=== PATIENT | female | born 1935 | race Caucasian/White ===

== ENCOUNTER → 2016-08-03 | Outpatient (CLI) | payer OTHER, MEDICARE ==
[~2016-08-03] MED LIST: ADULT LOW DOSE81 MG PO; AMBIEN 5 MG TABL5 M1 PO; ASPIRIN325; ATIVAN0.5 MG PO; BENTYL 10 MG CA10 M1 PO; BENTYL10 MG PO; BISACODYL SUPP10 MG RECTAL; CARAFATE 11 GM/10 M1 PO; CARDIZEM CD120 MG PO; CITRATE OF MAG296 ML PO; COLACE100 MG PO; COUMADIN 5 MG TA5 M1 PO; DOXYCYCLINE 10100 M2 PO; ENALAPRIL MALEAT5 M2 PO; EVISTA PO; GAS-X125 MG PO; GLUCOTROL10 MG PO; HYDROCODON-ACE1 EAC2 PO; LANTUSSOLASTAR SQ; LASIX 40 MG TAB40 M1 PO; LASIX 40 MG TAB40 M2 PO; LIDOCAINE VISC100 M1 PO; LISINOPRIL10 MG PO; LOPRESSOR100 M1 PO; LOVENOX SQ; MAG-AL PLUS SUS30 ML PO; MELATONIN1 MG PO; METFORMIN HCL500 MG PO; NORCO 7.5-3251 EACH PO; NYSTATIN1 EAC9; ONDANSETRON HCL4 M2 PO; PACERONE 200 M200 M1; PANTOPRAZOLE SO40 M1 PO; PRILOSEC 20 MG20 MG PO; PRINIVIL20 MG PO; SILVADENE20 GM TP; TOPROL XL100 MG PO; TOPROL XL50 MG PO; TRAMADOL 50 MG50 MG PO; TYLENOL325 MG PO; VALIUM5 MG PO; VASOTEC10 MG PO; VITAMIN D1000 UNI1 PO; ZOFRAN ODT4 MG PO
== END ==
LOC: HYPER 07:02
DX: I87.332 Chronic venous hypertension (idiopathic) with ulcer and inflammation of left lower extremity (principal); L97.821 Non-pressure chronic ulcer of other part of left lower leg limited to breakdown of skin; L03.116 Cellulitis of left lower limb; B36.9 Superficial mycosis, unspecified; I73.9 Peripheral vascular disease, unspecified; I48.91 Unspecified atrial fibrillation; J18.9 Pneumonia, unspecified organism; K21.9 Gastro-esophageal reflux disease without esophagitis; I11.0 Hypertensive heart disease with heart failure; I50.9 Heart failure, unspecified; E87.1 Hypo-osmolality and hyponatremia; I25.10 Atherosclerotic heart disease of native coronary artery without angina pectoris; E66.8 Other obesity

== ENCOUNTER → 2016-08-27 | Outpatient (CLI) | payer OTHER, MEDICARE | LOC: HYPER 07:49 | DX: I87.332 Chronic venous hypertension (idiopathic) with ulcer and inflammation of left lower extremity (principal); L97.821 Non-pressure chronic ulcer of other part of left lower leg limited to breakdown of skin; I73.9 Peripheral vascular disease, unspecified; I48.91 Unspecified atrial fibrillation; K21.9 Gastro-esophageal reflux disease without esophagitis; I11.0 Hypertensive heart disease with heart failure; I50.9 Heart failure, unspecified; M19.90 Unspecified osteoarthritis, unspecified site; I25.10 Atherosclerotic heart disease of native coronary artery without angina pectoris; Z87.01 Personal history of pneumonia (recurrent); Z96.651 Presence of right artificial knee joint ==

== ENCOUNTER → 2016-11-16 | Outpatient (CLI) | payer OTHER, MEDICARE | LOC: HYPER 10-18 07:07 | DX: I87.332 Chronic venous hypertension (idiopathic) with ulcer and inflammation of left lower extremity (principal); L97.821 Non-pressure chronic ulcer of other part of left lower leg limited to breakdown of skin; I73.9 Peripheral vascular disease, unspecified; E66.8 Other obesity; I48.91 Unspecified atrial fibrillation; K21.9 Gastro-esophageal reflux disease without esophagitis; I11.0 Hypertensive heart disease with heart failure; I50.9 Heart failure, unspecified; M19.90 Unspecified osteoarthritis, unspecified site; I25.10 Atherosclerotic heart disease of native coronary artery without angina pectoris; Z87.01 Personal history of pneumonia (recurrent); Z96.651 Presence of right artificial knee joint ==

== ENCOUNTER → 2016-12-15 | Outpatient (CLI) | payer OTHER, MEDICARE | LOC: HYPER 07:12 | DX: I87.332 Chronic venous hypertension (idiopathic) with ulcer and inflammation of left lower extremity (principal); L97.821 Non-pressure chronic ulcer of other part of left lower leg limited to breakdown of skin; B36.9 Superficial mycosis, unspecified; E66.8 Other obesity; I48.91 Unspecified atrial fibrillation; K21.9 Gastro-esophageal reflux disease without esophagitis; I11.0 Hypertensive heart disease with heart failure; I50.9 Heart failure, unspecified; E87.1 Hypo-osmolality and hyponatremia; M19.90 Unspecified osteoarthritis, unspecified site; I25.10 Atherosclerotic heart disease of native coronary artery without angina pectoris; G47.30 Sleep apnea, unspecified; Z96.651 Presence of right artificial knee joint ==